=== PATIENT | female | born 1970 | race Caucasian/White ===

== ENCOUNTER 2023-09-13 15:10 | Emergency (ER) | payer BC ==
[2023-09-13 15:49] LABS: BASOPHILS ABSOLUTE AUTO 0.1 K/mm3 (0.0-0.2); BASOPHILS PERCENT AUTO 0.7 % (0.0-1.0); EOSINOPHILS ABSOLUTE AUTO 0.1 K/mm3 (0.0-0.4); EOSINOPHILS PERCENT AUTO 0.7 % (0.0-6.0); HEMATOCRIT 41.9 % (37.0-47.0); HEMOGLOBIN 14.3 gm/dl (12.0-16.0); IMMATURE GRAN ABSOLUTE AUTO 0.01 K/mm3 (0.00-0.05); IMMATURE GRAN PERCENT AUTO 0.1 % (0.0-0.4); LYMPHOCYTES ABSOLUTE AUTO 2.3 K/mm3 (1.0-4.8); LYMPHOCYTES PERCENT AUTO 26.7 % (24.0-44.0); MEAN CORPUSCULAR HEMOGLOBIN 29.7 pg (28.0-32.0); MEAN CORPUSCULAR HGB CONC 34.1 g/dl (32.0-36.0); MEAN CORPUSCULAR VOLUME 86.9 fl (83.0-99.0); MEAN PLATELET VOLUME 8.8 fl (9.4-12.3); MONOCYTES ABSOLUTE AUTO 0.6 K/mm3 (0.0-0.8); MONOCYTES PERCENT AUTO 7.5 % (0.0-8.0); NEUTROPHILS ABSOLUTE AUTO 5.5 K/mm3 (1.8-7.7); NEUTROPHILS PERCENT AUTO 64.3 % (41.0-71.0); PLATELET COUNT,PLT 343 K/mm3 (150-400); RED BLOOD CELL COUNT 4.82 M/mm3 (4.10-5.30); WHITE BLOOD CELL COUNT,WBC 8.55 K/mm3 (3.9-11.3)
[2023-09-13] MEDS: Sodium Chloride 0.9% 10 ML Syringe FLUSH PRN (15:50)
[2023-09-13] MEDS: Iopamidol 612 MG/ML 100 ML Bottle IVPUSH ONE (15:50)
[2023-09-13] MEDS: Ondansetron 4 MG/2 ML SDV IVPUSH ONE (16:03)
[2023-09-13] MEDS: Ketorolac 30 MG/ML SDV IVPUSH ONE (16:03)
[2023-09-13] MEDS: Sodium Chloride 0.9% 1,000 ML IV SCH (16:03)
[2023-09-13 16:09] LABS: A/G RATIO 0.9 (1-2); ALBUMIN 3.7 g/dl (3.4-5.0); ANION GAP 15.5 (5-15); BILIRUBIN TOTAL 0.3 mg/dL (0.2-1.0); C-REACTIVE PROTEIN 0.46 mg/dL (<0.30); CALCIUM 9.5 mg/dL (8.5-10.1); CREATININE 0.8 mg/dL (0.55-1.02); EST CRCL DRUG DOSING (CG) 70.23 mL/min; POTASSIUM,K 3.5 mEq/L (3.5-5.1)
[2023-09-13 16:18] LABS: MAGNESIUM 1.8 mg/dL (1.8-2.4)
[2023-09-13 16:20] LABS: APPEARANCE,URINE SLT CLOUDY (Clear); BILIRUBIN,URINE NEGATIVE (Negative); COLOR,URINE YELLOW (Yellow); GLUCOSE,URINE NEGATIVE (Negative); KETONES,URINE NEGATIVE (Negative); LEUKOCYTE ESTERASE,URINE TRACE (Negative); NITRITE,URINE NEGATIVE (Negative); OCCULT BLOOD,URINE NEGATIVE (Negative); PH,URINE 6.5 (5.0-8.0); PROTEIN,URINE NEGATIVE (Negative); UROBILINOGEN,URINE 0.2 (0.2-1.0)
[2023-09-13 16:49] LABS: BACTERIA,URINE MODERATE /hpf (FEW); RBC,URINE 0-5 /hpf (0-5); WBC,URINE 0-5 /hpf (0-5)
[2023-09-13 16:50] LABS: MUCUS,URINE MANY /hpf (FEW)
== END 2023-09-13 17:34 | disposition home or self-care (01) ==
LOC: JD.ED 15:10
DX: D21.9 Benign neoplasm of connective and other soft tissue, unspecified (principal); Z88.5 Allergy status to narcotic agent; Z88.8 Allergy status to other drugs, medicaments and biological substances; Z79.899 Other long term (current) drug therapy; Z90.49 Acquired absence of other specified parts of digestive tract
CPT/HCPCS: 36415; 74177; 80053; 81001; 83690; 83735; 84703; 85025; 86140; 87086; 96361; 96374; 96375; 99284; J1885; J2405; J3490; J7030; Q9967

== ENCOUNTER → 2024-10-25 | Day surgery (SDC) | payer BC ==
[~2024-10-25] MED LIST: Propofol 200 MG/20 ML SDV ONE; Sodium Chloride 0.9% 10 ML Syringe FLUSH PRN; Sodium Chloride 0.9% 10 ML Syringe FLUSH SCH
[2024-10-25] MEDS: Lactated Ringers 1,000 ML IV SCH (10:10)
== END | disposition home or self-care (01) ==
LOC: JD.SDS 09:35
PROVIDERS: ATTEND Surgery
DX: K21.00 Gastro-esophageal reflux disease with esophagitis, without bleeding (principal); R13.10 Dysphagia, unspecified; K44.9 Diaphragmatic hernia without obstruction or gangrene; Z79.899 Other long term (current) drug therapy; Z88.5 Allergy status to narcotic agent; Z88.8 Allergy status to other drugs, medicaments and biological substances
CPT/HCPCS: 43239; J2704; J7120; 00731